=== PATIENT | male | born 1965 | race Caucasian/White ===

== ENCOUNTER 2021-06-07 08:02 | Emergency (ER) | payer SELFPAY ==
[2021-06-07] MEDS ORDERED: Ketorolac Tromethamine 30 MG/ML VIAL ONE (09:08)
== END 2021-06-07 09:50 | disposition home or self-care (01) ==
LOC: CSHERS 08:02
DX: T84.190A Other mechanical complication of internal fixation device of right humerus, initial encounter (principal); F17.210 Nicotine dependence, cigarettes, uncomplicated; W22.8XXA Striking against or struck by other objects, initial encounter
CPT/HCPCS: 96372; J1885